=== PATIENT | male | born 1995 | race Caucasian/White ===

== ENCOUNTER 2019-08-15 13:50 | Emergency (ER) | payer BC ==
[2019-08-15 13:57] VITALS: BP 130/99; PULSE 69; TEMP 97.8; BMI 23.6
[2019-08-15] MEDS ORDERED: FLUORESCEIN NA 1 EA STRIP OD ONE (14:16)
[2019-08-15] MEDS ORDERED: TETRACAINE 0.5% HCL 0.6ML DROPPER.BOTTLE OD ONE (14:16)
[2019-08-15] MEDS ORDERED: TETRACAINE 0.5% OPHTH SOLN 2 ML BOTTLE ONE (14:21)
[2019-08-15] MEDS ORDERED: FLUORESCEIN NA 1 EA STRIP ONE (14:21)
--- NOTE | 2019-08-15 14:50 | PDOC ---
Documentation entered by Nani Cazares SCRIBE, acting as scribe for Jewel Ontiveros MD. Jewel Ontiveros MD: This documentation has been prepared by the Sage mejia Joy, SCRIBE, under my direction and personally reviewed by me in its entirety. I confirm that the documentation accurately reflects all work, treatment, procedures, and medical decision making performed by me. History of Present Illness - General Chief Complaint: Foreign Body (FB) Stated Complaint: rt eye red Time Seen by Provider: 08/15/19 13:52 History Source: Patient Exam Limitations: No Limitations - History of Present Illness Initial Comments: 08/15/19 14:50 The patient is a 24 year old male with no significant past medical history who presents to the ED s/p clorox bleach splash in right eye earlier today. Patient states that he was cleaning when he dropped the bottle of clorox and it splashed into his right eye. Patient reports immediately rinsing his eyes for 15 minutes and then again when showering for 20 minutes, with slight relief. He reports burning, pain and slight blurriness in the right eye. Patient visual acuity is 20/25 for his right eye and at baseline his left eye is 20/70. Denies pain, nausea, and vomiting. Denies any other symptoms. Allergies: NKA Social History: Alcohol rec. drugs Past History - Past Medical History Allergies/Adverse Reactions: Allergies Allergy/AdvReac Type Severity Reaction Status Date / Time No Known Allergies Allergy Verified 08/15/19 13:51 Home Medications: Ambulatory Orders Erythromycin 0.5% Eye Ointment [Erythromycin 0.5% Eye Ointment -] 1 applic OD TID #1 tube 08/15/19 COPD: No - Immunization History Immunization Up to Date: Yes - Psycho Social/Smoking Cessation Hx Smoking History: Never smoked Have you smoked in the past 12 months: No Information on smoking cessation initiated: No Hx Alcohol Use: No Drug/Substance Use Hx: No Review of Systems - Review of Systems Able to Perform ROS?: Yes Comments:: 08/15/19 14:50 GENERAL/CONSTITUTIONAL: No fever or chills. No weakness. HEAD, EYES, EARS, NOSE AND THROAT: +Slight blurriness, +Burning and pain on right eye. No ear pain or discharge. No sore throat. CARDIOVASCULAR: No chest pain, no shortness of breath, no loss of consciousness RESPIRATORY: No cough, wheezing, or hemoptysis. GASTROINTESTINAL: No nausea, vomiting, diarrhea or constipation. GENITOURINARY: No dysuria, frequency, or change in urination. MUSCULOSKELETAL: No joint or muscle swelling or pain. No neck or back pain. SKIN: No rash NEUROLOGIC: No vertigo, no change in strength/sensation. ENDOCRINE: No increased thirst. No abnormal weight change. HEMATOLOGIC/LYMPHATIC: No anemia, easy bleeding, or history of blood clots. ALLERGIC/IMMUNOLOGIC: No hives or skin allergy. *Physical Exam - Vital Signs Last Vital Signs Temp Pulse Resp BP Pulse Ox 97.8 F 69 20 130/99 98 08/15/19 13:51 08/15/19 13:51 08/15/19 13:51 08/15/19 13:51 08/15/19 13:51 - Physical Exam Comments: 08/15/19 14:50 GENERAL: Awake, alert, and fully oriented, in no acute distress. HEAD: No signs of trauma EYES: PERRLA, EOMI, sclera anicteric, conjunctiva clear ENT: Auricles normal inspection, hearing grossly normal, nares patent, oropharynx clear without exudates. Moist mucosa NECK: Nontender, no stepoffs, Normal ROM, supple, no lymphadenopathy, JVD, or masses LUNGS: Breath sounds equal, clear to auscultation bilaterally. No wheezes, and no crackles HEART: Regular rate and rhythm, normal S1 and S2, no murmurs, rubs or gallops ABDOMEN: Soft, nontender, normoactive bowel sounds. No guarding, no rebound. No masses EXTREMITIES: Normal range of motion, no edema. No clubbing or cyanosis. No cords , erythema, or tenderness NEUROLOGICAL: Cranial nerves II through XII intact. 5/5 strength and sensation in all extremities, Normal speech, normal gait, normal cerebellar function SKIN: Warm, Dry, normal turgor, no rashes or lesions noted. Discharge - Discharge Information Problems reviewed: Yes Clinical Impression/Diagnosis: Corneal ulcer Disposition: HOME - Additional Discharge Information Prescriptions: Erythromycin 0.5% Eye Ointment [Erythromycin 0.5% Eye Ointment -] 1 applic OD TID #1 tube - Follow up/Referral Referrals: Denzel Abebe MD [Staff Physician] - - Patient Discharge Instructions Patient Printed Discharge Instructions: DI for Chemical Eye Burn Additional Instructions: Use the antibiotic drops as prescribed to prevent any eye infection. Follow up with an safety sitter within 48 hours to have your eye further evaluated. If you experience worsening eye pain, blurred vision, or any other concerning symptoms, return to the ER immediately. - Post Discharge Activity
== END 2019-08-15 15:49 | disposition home or self-care (01) ==
LOC: FER 13:50
DX: H16.001 Unspecified corneal ulcer, right eye (principal)
CPT/HCPCS: 99281-25